=== PATIENT | male | born 1980 | race Caucasian/White ===

== ENCOUNTER 2022-10-29 01:25 | Emergency (ER) | payer OTHER, SELFPAY ==
[2022-10-29] VITALS (18 sets, daily range): BP systolic 107–163; BP diastolic 69–94; PULSE 87–118; RESP 14–20; TEMP 36.3; O2SAT 96–99
--- NOTE | ~2022-10-29 | CT_ITS ---
EXAMINATION: CT brain wo con DATE: 10/29/2022 02:48 INDICATION: Fall. Patient struck face and head. Laceration to right lower lip. Left facial swelling. TECHNIQUE: Computed tomography (CT) of the head was performed without intravenous contrast. The mA wa s adjusted according to patient size. Iterative reconstruction technique was employed. Exam dose: 60 5.33 mGy-cm total exam DLP. COMPARISON: None FINDINGS: No intracranial mass lesion or hemorrhage or cerebrovascular accident. No midline shift or mass effect effect. Normal flores-white matter differentiation. Normal ventricular size. No subdural or epidural hematoma is detected. No skull fracture. Included paranasal sinuses and mastoid air cells are unremarkable. IMPRESSION: Negative Reviewed, dictated and finalized at [facility]. Reviewed, dictated and finalized at [facility]. 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
--- NOTE | ~2022-10-29 | CT_ITS ---
EXAMINATION: CT facial & cervical spine wo DATE: 10/29/2022 02:49 INDICATION: Fall. Patient struck head and face. Right lower lip laceration, left facial swelling. TECHNIQUE: Computed tomography (CT) of the facial bones and maxillofacial region was performed withou t intravenous contrast. Automated exposure control and iterative reconstruction technique were employ ed. Exam dose: 445.83 mGy-cm total exam DLP. COMPARISON: None. FINDINGS: Left premaxillary facial soft tissue swelling, extending around the left mandible. Soft tissue laceration at the anterior medial aspect of the body of the mandible. Global rims and mina, frontozygomatic sutures, psychotic arches, maxillary bones are intact. No faci al fracture. The nasal bones are intact. Normal alignment at the temporomandibular joints. No mandibu lar fracture is detected. C1 and C2 are normally aligned and the odontoid process is intact. No fracture or dislocation, locked facet or prevertebral soft tissue swelling. There is moderately severe degenerative disc disease at C6-7. IMPRESSION: No facial or cervical spine fracture Moderately severe degenerative disc disease at C6-7 Reviewed, dictated and finalized at [facility]. Reviewed, dictated and finalized at [facility]. 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
[2022-10-29] MEDS: HYDROcodone/acetaminophen (*CRX) 5-325 MG TABLET 1 TAB PO (02:09)
[2022-10-29] MEDS: TETANUS,DIPHTHERIA,AC PERTUSSIS ADULT (0.5 ML) BOOSTRIX IM (02:09)
--- NOTE | 2022-10-29 03:01 | ED.GENADULT ---
HPI - General Adult General Chief complaint: Fall Stated complaint: Fall down steps Time Seen by Provider: 10/29/22 01:42 History of Present Illness HPI narrative: this is a 42-year-old male presenting ED after a fall with facial trauma. The patient was drinking beer all day. He fell down several steps with a cooler on his back. He then hit his head on a sofa. He has numerous cuts to his lips and inside his mouth. There is swelling to the left cheek. Patient denies loss of conscious, denies use of blood thinners, denies any other injuries. He is not on his last Tdap was. Related Data Allergies Allergy/AdvReac Type Severity Reaction Status Date / Time No Known Allergies Allergy Verified 10/29/22 01:31 [facility] Family History Family History Other Carcinoma of colon Social History Social History (Updated 10/29/22 @ 03:03 by Enrrique Gudino MD) Social History: positive alcohol use, denies tobacco or drug use Alcohol intake: current Exam Narrative: APPEARANCE: No apparent distress. Pleasantly intoxicated. Head: Z shaped 2.5 cm laceration to the right lower lip with involvement of the vermilion border. 2 cm laceration inside the lower lip. 1cm shallow avulsion to the skin over the left upper lip - not amenable to suture repair. significant soft tissue swelling of the left cheek. no apresthesias under the left eye. EYES: EOMI, NOSE: Atraumatic NECK: Trachea midline, no midline cervical tenderness RESPIRATORY: No increased rate of breathing CARDIOVASCULAR: RRR, ABDOMINAL: Non-distended MUSCULOSKELETAl: No obvious deformities NEURO: Alert. Cranial nerves 2-12 grossly intact. Sensation light touch, motor function cerebellar function intact for 4 extremities. Gait exam was normal. SKIN:: Warm, dry. Normal color PSYCHIATRIC: Normal affect Course Course Emergency Course: Zych 0600 Stat Rad has been taking greater than 5-6 hours per read. Patient was signed out to oncoming physician pending official CT head, c-spine and max/face. Vital Signs Vital signs: Vital Signs Temperature 97.4 F L 10/29/22 01:28 Pulse Rate 110 H 10/29/22 01:28 Respiratory Rate 20 10/29/22 01:28 Blood Pressure 163/94 H 10/29/22 01:28 Pulse Oximetry 99 10/29/22 01:28 Oxygen Delivery Room Air 10/29/22 01:28 Temperature 97.4 F L 10/29/22 01:28 Pulse Rate 110 H 10/29/22 01:28 Respiratory Rate 20 10/29/22 01:28 Blood Pressure 163/94 H 10/29/22 01:28 Pulse Oximetry 99 10/29/22 01:28 Oxygen Delivery Room Air 10/29/22 01:28 Procedures Laceration Laceration 1: Date: 10/29/22 Site: lip Side (If applicable): right Size (cm): 2.5 Description: stellate, irregular and involves margarita border Depth: simple, single layer Local Anesthetic: lidocaine 1% Amount of anesthesia used (mL): 3 Pre-repair: wound explored and irrigated ====== Skin Level ====== Skin layer closed with: nylon Size (cm): 6-0 Number of sutures: 6 Technique: simple, interrupted ====== Subcutaneous Layer ====== ====== Muscle Layer ====== ====== Tendon Layer ====== Laceration 2: Date: 10/29/22 Site: lip (Inside lower lip) Size (cm): 2 Description: linear and irregular Depth: simple, single layer Local Anesthetic: lidocaine 1% Amount of anesthesia used (mL): 3 Pre-repair: wound explored and deep structures intact ====== Skin Level ====== Skin layer closed with: other (chromic gut) Size (cm): 4-0 Number of sutures: 5 Technique: simple, interrupted ====== Subcutaneous Layer ====== ====== Muscle Layer ====== ====== Tendon Layer ====== Medical Decision Making MDM Narrative Medical decision making narrative: -Presentation: 42-year-old male presenting to ED
--- NOTE | 2022-10-29 04:12 | PC.NURSE ---
Patient given ice pack for facial swelling.
== END 2022-10-29 08:04 | disposition home or self-care (01) ==
PROVIDERS: Emergency Provider Preventive Medicine Aerospace Medicine; PCP Family Medicine
DX: S01.511A Laceration without foreign body of lip, initial encounter (principal); S01.512A Laceration without foreign body of oral cavity, initial encounter; F10.129 Alcohol abuse with intoxication, unspecified; Z23 Encounter for immunization; Y90.9 Presence of alcohol in blood, level not specified; W10.9XXA Fall (on) (from) unspecified stairs and steps, initial encounter
CPT/HCPCS: 12013; 70450; 70486; 72125; 90471; 90715; 99284; A9270